=== PATIENT | female | born 1940 | race Caucasian/White ===

== ENCOUNTER 2017-07-30 22:55 | Inpatient (IN) | payer MEDICARE, MEDICAID ==
[~2017-07-30] VITALS: Ht 170.2 cm; Wt 41.6 kg
[2017-07-31] VITALS (7 sets, daily range): BP systolic 111–141; BP diastolic 46–84; PULSE 52–71; RESP 12–15; O2SAT 95–99
[2017-07-31] MEDS ORDERED: Alum-Mag Hydrox-Simeth 30 mL Suspension PO PRN (01:05)
[2017-07-31] MEDS ORDERED: BACL10TA PO (01:05)
[2017-07-31] MEDS ORDERED: LAMO100T2 PO (01:05)
[2017-07-31] MEDS ORDERED: LAMO200T2 PO (01:05)
[2017-07-31] MEDS ORDERED: LISI10TA PO (01:05)
[2017-07-31] MEDS ORDERED: Ondansetron 2 mg/mL 2 mL Inj IVPUSH PRN (01:05)
[2017-07-31] MEDS ORDERED: Senna-Docusate 8.6-50 mg Tablet PO PRN (01:05)
[2017-07-31] MEDS ORDERED: SERT20OR6 PO (01:05)
[2017-07-31] MEDS ORDERED: HYDR-4003 PO (01:05)
[2017-07-31] MEDS ORDERED: ROB500 PO (01:05)
[2017-07-31] MEDS ORDERED: LOVA40TA PO (01:05)
[2017-07-31] MEDS ORDERED: ROPI0.252 PO (01:05)
[2017-07-31] MEDS ORDERED: Polyethylene Glycol (PEG) 17 Gm Powder PO PRN (01:05)
[2017-07-31] MEDS ORDERED: PRIM50TA PO (01:05)
--- NOTE | 2017-07-31 02:01 | NUR ---
Admit note: Pt arrives to room 2013 per cart by EMS from [facility] at 0015. Pt is unarousable, but did cry out when transferred onto bed from cart. Monitor was applied shows SR 60-70s, Spo2=98% on room air; PH=504a/50s. Family arrives and at bedside, talks with Dr. Hidalgo. Pt made comfortable and continued to monitor.
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
[2017-07-31 06:09] LABS: BASOPHILS % (AUTO) 0.3 % (0-3); EOSINOPHILS % (AUTO) 2.9 % (0-5); MONOCYTES % (AUTO) 13.6 % (4-12); Mean Corpuscular Hemoglobin 33.5 pg (27.0-35.0); Mean Corpuscular Volume 104.9 fL (81-100); NEUTROPHILS % (AUTO) 59.6 % (40-74); Platelet Count 217 bil/L (150-400)
[2017-07-31] MEDS: Sodium Chloride LOK Flush 10 mL Syringe IVFLUSH SCH ×2 (08:23→16:56)
[2017-07-31] MEDS: Heparin 5,000 Unit/mL Inj SUBQ SCH ×2 (08:23→16:56)
[2017-07-31] MEDS ORDERED: Dextrose 5% 0.9% NaCl 250 ML in IV Bag 1 EACH IV ONE (08:25)
[2017-07-31] MEDS ORDERED: Glucagon 1 mg/mL Inj IM ONE (08:30)
[2017-07-31] MEDS ORDERED: Dextrose 5% 0.9% NaCl 1,000 ML IV ONE (09:35)
[2017-07-31] MEDS ORDERED: Glucagon 1 mg/mL Inj IV ONE (10:00)
[2017-07-31] MEDS ORDERED: Dextrose 10% 250 ML IV ONE (10:15)
--- NOTE | 2017-07-31 13:19 | PCM.PNMED ---
Subjective Date of Service Jul 31, 2017 Subjective Patient was seen and examined today. She was obtunded and was not able to answer questions. I spoke with her sister who is in the room this morning she states that the patient was at full functioning health 2 days ago. She states the patient has had seizures since she was a child, but does not know what medications she is on, whether she is managing them properly, or who her primary physician is. Sister Roula says that Kimberly has assigned her is the point of contact for her healthcare decisions, though they have not formalize this and any official way. There is also a son in [place] that he may be in. Nursing states that patient was a little more responsive but not fully with it. I revisited with the patient and she was alert and oriented 3, he stated that she wishes to be DNR/DNI. Exam Vital Signs Vital Sign - Last Date Time Temp Pulse Resp B/P Pulse Ox O2 Delivery O2 Flow Rate FiO2 07/31/17 07:37 36.5 52 12 135/62 97 Room Air Exam General: Obtunded, and arousable but could not keep eyes open or answer questions HEENT: Pupils equal round, mucous membrane moist. Neck: Supple, No lymphadenopathy or thyromegaly. Cardiovascular: Regular rhythm with no murmurs, rubs, or gallops appreciated Pulmonary: Clear to auscultation bilaterally with no crackles, wheezes, or rhonchi. Decreased air movement. Abdomen: Bowel tones present. Soft, nontender, nondistended. No hepatosplenomegaly or masses appreciated. Extremities: No clubbing, cyanosis, edema, or lymphadenopathy appreciated. Skin: Normal temperature, turgor, and texture; no rash, ulcers, or subcutaneous nodules appreciated. Neurological: No clonus or cogwheel rigidity. Psychiatric: Unable to assess IVs and Medications Medications Reviewed: Medications were reviewed in detail Lab and Diagnostics Result Diagram: 07/31/1750907/31/17509 X-Rays, CTs and MRIs From [facility]: X-ray lumbar spine 3 view. Impression: Negative for acute fracture. Chest x-ray one view Impression: 3.5 cm nodular mass at the right posterior lung base suspicious for neoplasm. This was demonstrated previously on 05/30/17 on chest x-ray. No acute infiltrates X-ray bilateral hip Impression: Negative pelvis and bilateral hips CT C-spine Impression: Negative CT cervical spine. No evidence of an acute process or fracture. CT head Impression: no CT evidence of acute intracranial process CT head Impression: There are minor old small vessel changes in the white matter. Otherwise negative CT head. No evidence of acute acute process. 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 Hospital day 2. Altered mental status concerning for nonconvulsive status epilepticus in a patient with history of localization-related epilepsy, present on admission, active -Patient is now status post loading dose of Keppra as well as Dilantin with marginal improvement. -Patient did complain of pain this morning, but we will hold off on morphine to better assess her mental status -Keppra discontinued on advice of ICU team to better assess her mental status -Urine drug screen ordered -Dr. Ja Rosas was consulted and believes that the patient likely did have a seizure and wasn't postictal state. He recommends resuming home Lamictal and Keppra 500 mg twice a day -EEG is ordered showed diffuse slowing but no current seizure activity -Neurological exam is nonfocal -MRI to be performed today Chronic issues: Restless leg syndrome -Patient is nothing by mouth currently due to altered mental status Essential tremor Cervical dystonia -Patient is nothing by mouth currently due to altered mental status Hyperlipidemia -Patient is nothing by mouth currently due to altered mental status Depression -Patient is nothing by mouth currently due to altered mental status CODE STATUS: Per my conversation with patient on 07/31/17 patient wishes to be DNR/DNI Patient will likely be here another couple of days while she rebounds from this recent seizure. VTE Mechanical Devices: Intermittant Pneumatic CD Time spent 30 minutes Attending Statement I have seen and evaluated patient at bedside in addition to directly supervising care provided by resident physician Dr. Blair on 07/31/2017. I agree with above documentation. Note in conversing with Dr Otto over the phone following review of EEG; we are of the opinion patient did have a stroke of evidenced by difuse slowing pattern , patient:s previous obtunded state may be multifactorial due to antiepilietpic medications, Dilantin specially, and possible post-ictal state. Given lack of response to Narcan it is unlikely opiates played a significant role. Keppra will be added to previously RX'd Lamictal as there is evidence of treatment failure. Lamictal level remains pending. Murali Blair DO Jul 31, 2017 13:19 Pierre Guajardo DO Jul 31, 2017 21:33
--- NOTE | 2017-07-31 13:46 | NUR ---
NUTRITION ASSESSMENT: ASSESS: Pt is a 76yo F admitted to CCU for encephalopathy. Neurology has been consulted and plan is for EEG and MRI today. She is currently NPOx1 day. PMHX: epilepsy, essential tremor, RLS, Depression, DJD, HTN, Depression LABS: Reviewed. Bun 6, Ca 8.2 MEDS: Reviewed. Zofran, morphine GI: 0 BM yet SKIN: no issues noted CURRENT WTS: 45.1kg, BMI 15.6kg/m2, IBW: 61.4kg DIET: NPOx1 EST. NEEDS: wt gain Kcals: 1350-1800kcal/day (30-40kcal/kg) Pro: 55-70g/day (1.2-1.5g/kg) NUTRITION DIAGNOSIS: 1.) Inadequate oral intake related to decreased ability to consume sufficient energy as evidenced by current NPO status NUTRITION INTERVENTION: 1.) Recommend advance diet when medically appropriate. Due to AMS pt may benefit from ST eval for most appropriate/safe diet order. 2.) Will monitor wt trends as pt is currently underwt with a BMI of 15.6. Once encephalopathy clears will attempt to speak with pt about her wt and ways to gain wt so that BMI in in healthy range MONITOR / EVAL: NPO, wt, st, gi, labs, POC, nutrition status. Will continue to monitor per high nutrition risk guidelines Addendum: 08/01/17 at [address] Spoke with pt and pt's sister today about pt's wt and her appetite. Pt stated that she gets full easily and so she likes to snack throughout the day. She stated that her wt tends to fluctuate but recently has been decreasing. She tends to make her own muffins and biscuits and she eats a lot of oatmeal. Discussed with pt and her sister about trying to optimize her kcal/pro intake by eating high kcal/pro foods and using extra butter/gravy and drinking whole milk to get more kcals. Discussed eating smaller more frequent meals. Provided high kcal/pro recipe book and high kcal/pro nutrition handout. Pt stated that she likes to cook and her caregiver helps her cook as well.
--- NOTE | 2017-07-31 14:32 | DRSVH ---
PROCEDURE: MRI SEIZURE BRAIN WITH AND WITHOUT CONTRAST ([id number]) INDICATIONS: AMS/Seizure? TECHNIQUE: Noncontrast axial T1 spin echo, axial T2 fast spin echo, sagittal and axial FLAIR, axial gradient ech o, axial diffusion and ADC, coronal thin-slice T2 FSE through the brain. Optional contrast, followed by axial and coronal 3D VIBE or T1 spin echo with fat saturation sequences through the brain. COMPARISON: None. FINDINGS: Image quality: Motion is present throughout the examination, with several sequences demonstrating sig nificant artifact, limiting evaluation. CSF spaces: Ventricles are normal in size and shape. Basal cisterns are patent. No extra-axial flu id collections. Brain: No gross intracranial bleeds or mass effects. No gross abnormal intracranial enhancement. G ray-white matter interface appears intact. Diffusion weighted images demonstrate no acute ischemic i nsults. Brainstem appear normal. Normal intravascular flow voids are present. The hippocampal eusebio ons appear normal and symmetric in morphology. Skull and face: Calvarial marrow signal is normal. Orbits appear normal. Sinuses: Sinuses and mastoids are clear. IMPRESSION: 1. Significant motion artifact limiting areas of detail evaluation. 2. No acute gross intracranial process. 3. Moderate atrophy and chronic microvascular ischemic changes. Dictated by: Bobbi Schroeder M.D. on 07/31/2017 at 14:17 Approved by: Bobbi Schroeder M.D. on 07/31/2017 at 14:31
[2017-07-31] MEDS ORDERED: Sertraline 20 mg/mL Liq PO SCH (16:00)
[2017-07-31] MEDS ORDERED: _HYDROcodone/APAP 5-325 mg Tablet PO PRN (16:00)
[2017-07-31] MEDS: HYDROcodone-APAP 5-325 mg Tablet PO PRN ×2 (16:33→21:11)
--- NOTE | 2017-07-31 17:37 | NUR ---
Social Work: Initial Assessment D: Per EMR review, patient is a 76 year old female admitted for encephalopathy. Patient is Medicare with DSHS supplement; no LTC or VA benefits. Mysql Database Developer is Ting Springer DO. NOK is Roula Best, sister, . Advanced directives not completed prior to admission. NO RA Score available at this time. DEBT COLLECTION SPECIALIST met with the patient's sister at bedside. Sw role explained, contact information and discharge planning checklist provided. See initial assessment. Pt lives in a ground level apartment in [facility]. Patient uses a 4WW and FWW at baseline but is I with her ADLs. Patient has MISSAEL caregiving 36 hours a month (3x week for 3 hours). Pt's CM is Ja Ryder who was present at bedside. Caregivers assist patient with meds, bathing, cleaning and meal prep. Patient has never had HH and half-way. Patient's sister anticipates discharge home but is receptive to discharge planning as needs become known. A: Pt who is at baseline but has MISSAEL Caregiving for 36 hours of caregiving/month. P: Evolving; DEBT COLLECTION SPECIALIST to continue to follow to assess for discharge needs. [facility] Addendum: 07/31/17 at 1747 by MARCIN RAHMAN Amended: Links added.
--- NOTE | 2017-07-31 18:37 | NUR ---
Neuro.. pt quite somnolent this am, and confused to place and year. Throughout the am became increasingly more alert and this afternoon is oriented x3 and back to neuro baseline per family and caregiver. Noted to be hypoglycemic this am, but asymptomatic. Dr Blair updated and D10 given. This afternoon is able to take po and blood sugars are normalizing. Was taken to MRI monitored with RN present and pt pearl procedure well. Family and caregiver updated. Pt has transitioned to PCC/Tele status.
[2017-07-31] MEDS: levETIRAcetam 500 mg Tablet PO SCH (20:01)
[2017-07-31] MEDS ORDERED: lamoTRIgine 100 mg Tablet PO SCH (21:00)
[2017-08-01] VITALS (7 sets, daily range): BP systolic 105–158; BP diastolic 48–72; PULSE 54–79; RESP 13–22; O2SAT 97–100
[2017-08-01] MEDS: Sodium Chloride LOK Flush 10 mL Syringe IVFLUSH SCH ×2 (00:28→09:01)
[2017-08-01] MEDS: Heparin 5,000 Unit/mL Inj SUBQ SCH ×2 (00:28→09:01)
[2017-08-01] MEDS: HYDROcodone-APAP 5-325 mg Tablet PO PRN (01:03)
[2017-08-01 03:47] LABS: Mean Corpuscular Hemoglobin 33.6 pg (27.0-35.0); Mean Corpuscular Volume 104.1 fL (81-100)
--- NOTE | 2017-08-01 05:32 | NUR ---
Tele / VS /Pain / No N&V/ Neuro Pt denies chest pain, Tele SB-SR with HR 50-60s and down to the mid 40s while sleeping. VS stable and afebrile. No c/o SOB, RA sats 98-100%. Pt c/o bilateral hip and leg pain 07/14. Medicated with PO [place] 5-325mg twice this shift and Pt fell back asleep after being medicated, both times. No N&V noted all night. Pt A&O X3 overnight.
[2017-08-01] MEDS ORDERED: lamoTRIgine 100 mg Tablet PO SCH (08:30)
[2017-08-01] MEDS: levETIRAcetam 500 mg Tablet PO SCH (08:59)
--- NOTE | 2017-08-01 12:14 | PCM.DIMED ---
Murali Blair DO 08/01/17 1158: Discharge Instructions Date of Service Aug 01, 2017 Dates of Hospitalization Jul 31, 2017 at 00:20 Discharge Diagnosis Discharge Diagnosis Nonconvulsive status epilepticus Medication Instructions Additional med instructions We are sending you home with Keppra 500 mg to be taken twice daily. Continue taking your lamotrigine 100 mg in the morning and 200 mg at night. Please resume taking your regularly prescribed home medications as directed. Test Results Test Results Per our neurologist, Dr. Rosas, your EEG showed that you likely had a seizure. The MRI of your brain did not show any signs of a stroke. Diet Discharge Diet: Heart Healthy Activity Discharge Activity: Limited until seen by PCP Call your provider Call your provider for: Fever or Chills, Shortness of breath, Bleeding, Chest pain, Vomitting, Excessive diarrhea, Weakness (unilateral) Patient Instructions Patient Instructions Please follow-up with your primary care provider within one week. Please remember to ask about your recent chest x-ray. Resume your home health care. Please take your new medication and your other home medications as prescribed. It will be important for your family and your home residential care facility manager to keep a close eye on you for the first couple of days until you get settled back at home. Follow-up Provider: Ting Springer DO Follow-up with PCP in: 1 week Sohail Coleman MD 08/03/17 0745: Discharge Instructions Attending's Statement The patient was seen and examined together with Dr. Blair on 08/01/2017 and I agree with the history, exam and plan as outlined in the note above. . Murali Blair DO Aug 01, 2017 11:58 Sohail Coleman MD Aug 03, 2017 07:45
[2017-08-01] MEDS ORDERED: KEP500TA PO (12:24)
--- NOTE | 2017-08-01 13:44 | NUR ---
Social Work: Discharge/Multidisciplinary Rounds D: Pt discussed in multidisciplinary rounds; the patient is medically stable for discharge. Capacity for self-care discussed; no concerns at this time. Doctor does not identify any discharge needs. RN agrees. TELESALES MANAGER met with the patient and sister at bedside to reassess for discharge needs. Patient found sitting in her bedside chair, eating her lunch. Patient and sister state that the patient has been ambulating and that she is back to her baseline. TELESALES MANAGER confirmed patient has 3 day of IMSSAEL caregiving a week (3 hours each day) who assist with meals, bathing, chores and cleaning. Patient and sister identify no discharge needs and state that the patient son will be staying with her for several days, and sister will also be checking in. TELESALES MANAGER requested Topographic Computator fax discharge clinicals to [facility] ISIAH Ryder. A: Pt who is at her baseline functioning. P: Pt to discharge home with resumed MISSAEL Caregiving and family support. No further discharge needs identified at this time. [facility]
--- NOTE | 2017-08-01 14:26 | NUR ---
Discharge Pt discharged at approximately 1415 to home with sister. Pt given educational material and prescription for Keppra, Status Ellipticus. IV DC'd with catheter intact. Pt and sister acknowledged information. Followup appt scheduled, sister stated she will facilitate a ride. Pt left with all personal belongings. Escorted by BRUSH WORKER in wheelchair to door.
--- NOTE | 2017-08-01 18:21 | PCM.DC.MED ---
Discharge Summary Date of Service Aug 01, 2017 Dates of Hospitalization Date of Hospital Admission Jul 31, 2017 at 00:20 Date of Discharge: Aug 01, 2017 Providers: Admitting Physician: Hannah Mendez DO Primary Care Physician: Ting Springer DO Attending Physician: Sohail Coleman MD Diagnosis at Time of Discharge Diagnosis at Time of Discharge Nonconvulsive status epilepticus Consultations Dr. Sloan, Neurology Procedures XRay, CTs & MRIs From [place]: X-ray lumbar spine 3 view. Impression: Negative for acute fracture. Chest x-ray one view Impression: 3.5 cm nodular mass at the right posterior lung base suspicious for neoplasm. This was demonstrated previously on 05/30/17 on chest x-ray. No acute infiltrates X-ray bilateral hip Impression: Negative pelvis and bilateral hips CT C-spine Impression: Negative CT cervical spine. No evidence of an acute process or fracture. CT head Impression: no CT evidence of acute intracranial process CT head Impression: There are minor old small vessel changes in the white matter. Otherwise negative CT head. No evidence of acute acute process. Other Diagnostics EEG performed 07/31/17 demonstrated diffuse slowing, without seizure activity. 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 The patient was noncommunicative and the entirety of the history was obtained through record review as well as given medication with the patient's family who were at bedside. Per documentation, patient had a syncopal episode prior to arrival which was not witnessed and the patient stated to have lost consciousness. Patient did complain of low back, right hip and left hip pain. Patient notes that she awoke on her bathroom floor with no recollection of what happened previous to the event. In the [place] emergency department the patient was noted to be uncomfortable and crying and she was given 0.5 mg of Dilaudid. After this the patient became sleepy and difficult to arouse at which point a trial of Narcan was given the patient did but subsequently became very agitated and nonconversant. An ABG was obtained which was unremarkable. Second trial of Narcan was given with no effect. Patient was never noted to be in respiratory distress. The patient had a syncopal episode with a possible fall a repeat CT of head was performed which was unremarkable. This case was discussed with Dr. Ja Sloan noted that the patient may be having nonconvulsive status and recommended a 1 g loading dose of Keppra. This was followed by a loading dose of Dilantin at the patient had no improvement in 30 minutes. She had an MRI which did not show any evidence of stroke. Later in the day, patient was alert and oriented times 3 An EEG was performed which was interpreted by Dr. sloan from neurology and displayed diffuse slowing indicative of a post-ictal state. He recommended that we give her 500 mg of Keppra twice daily and restart her home dose of lamotrigine. On day of discharge, patient was alert and oriented 3. Her vital signs were stable. She was eating, drinking, ambulating independently, and urinating. She was discharged home with home health and close by family to keep an eye on her for the first few days while she gets settled at home. She was instructed to follow up with her primary care physician Dr. Springer within 1 week. She was restarted on her home lamotrigine as well as her other home meds, and received a prescription for 500 mg Keppra twice daily. Hospital Course See below for detailed hospital course Altered mental status concerning for nonconvulsive status epilepticus in a patient with history of localization-related epilepsy, present on admission, resolved -Patient did complain of pain this morning, but we will hold off on morphine to better assess her mental status -Lamotrigine 100 mg every morning and 200 mg every PM and Keppra 500 mg twice a day -Dr. Ja Sloan was consulted and believes that the patient likely did have a seizure and was in postictal state on presentation -EEG is ordered showed diffuse slowing but no current seizure activity -Neurological exam is nonfocal -MRI did not show evidence of stroke. Chronic issues: Restless leg syndrome Essential tremor Cervical dystonia Hyperlipidemia Depression CODE STATUS: Per my conversation with patient on 07/31/17 patient wishes to be DNR/DNI Disposition: Home with home health and close care by family members for the first few days. Exam Vital Signs (Last) Date Time Temp Pulse Resp B/P Pulse Ox O2 Delivery O2 Flow Rate FiO2 08/01/17 13:16 36.7 66 20 132/70 98 Room Air Exam General: No acute distress HEENT: Normocephalic, atraumatic Neck: Supple with full range of motion. No jugular venous distension. Cardiovascular: Regular rate and rhythm with no murmurs, rubs, or gallops appreciated Pulmonary: Clear to auscultation bilaterally with no crackles, wheezes, or rhonchi. Normal respiratory effort with no use of accessory muscles. Abdomen: Bowel tones present. Soft, nontender, nondistended. Extremities: No clubbing, cyanosis, edema, or lymphadenopathy appreciated. Skin: Normal temperature, turgor, and texture Neurological: Cranial nerves grossly intact. Normal muscle strength, tone, and bulk. Reflexes, coordination, and sensory function within normal limits. Psychiatric: Normal mood and affect. Alert and oriented to person, place, and time. Test 07/31/17 05:10 07/31/17 16:30 08/01/17 03:10 Neutrophils (%) (Auto) 59.6% (40-74) Lymphocytes (%) (Auto) 23.4% (14-46) Monocytes (%) (Auto) 13.6% (4-12) Eosinophils (%) (Auto) 2.9% (0-5) Basophils (%) (Auto) 0.3% (0-3) Phenytoin (Dilantin) Level 7.2uG/mL (10.0-20.0) White Blood Count 5.6th/mm3 (3.8-10.1) Red Blood Count 3.18mil/mm3 (3.90-5.20) Hemoglobin 10.7g/dL (12.0-15.6) Hematocrit 33.1% (35.0-46.0) Mean Corpuscular Volume 104.1fL (81-100) Mean Corpuscular Hemoglobin 33.6pg (27.0-35.0) Mean Corpuscular Hemoglobin Concent 32.3% (32.0-37.0) Red Cell Distribution Width 14.3% (12.3-15.4) Platelet Count 208bil/L (150-400) Sodium Level 136mEq/L (134-144) Potassium Level 3.8mEq/L (3.5-5.2) Chloride Level 100mEq/L (97-108) Carbon Dioxide Level 28mmol/L (18-29) Blood Urea Nitrogen 7mg/dL (8-27) Creatinine 0.60mg/dL (0.57-1.00) Estimat Glomerular Filtration Rate 139mL/min (>59) Glucose Level 91mg/dL (60-99) Calcium Level 8.2mg/dL (8.5-10.1) Total Bilirubin 0.2mg/dL (0.0-1.2) Aspartate Amino Transf (AST/SGOT) 22U/L (0-50) Alanine Aminotransferase (ALT/SGPT) 11U/L (0-32) Alkaline Phosphatase 66U/L (25-165) Total Protein 5.2g/dL (6.4-8.4) Albumin 3.3g/dL (3.4-5.0) Discharge Medications Discharge Medications Baclofen (Baclofen) 10 Mg Tablet 10 MG PO QAM (Reported) Lamotrigine (Lamotrigine) 100 Mg Tablet 100 MG PO QAM (Reported) Lamotrigine (Lamotrigine) 200 Mg Tablet 200 MG PO HS (Reported) Levetiracetam (Keppra) 500 Mg Tablet 500 MG PO BID Prescribed by: NICKY HENRY DO Lisinopril (Lisinopril) 10 Mg Tablet 10 MG PO DAILY (Reported) Lovastatin (Lovastatin) 40 Mg Tablet 40 MG PO HS (Reported) Methocarbamol (Methocarbamol) 500 Mg Tablet 500 MG PO TID (Reported) Primidone (Primidone) 50 Mg Tablet 50 MG PO HS (Reported) Ropinirole (Ropinirole) 0.25 Mg Tablet 0.25 MG PO HS (Reported) Sertraline HCl (Sertraline) 20 Mg/1 Ml Oral.conc 25 MG PO DAILY (Reported) As needed Hydrocodone-Acetaminophen 5-325 mg (Hydrocodone-Acetaminophen 5-325 mg) 1 Each Tablet 1 TABLET PO Q4H PRN PRN For Pain (Reported) Additional med instructions We are sending you home with Keppra 500 mg to be taken twice daily. Continue taking your lamotrigine 100 mg in the morning and 200 mg at night. Please resume taking your regularly prescribed home medications as directed. Followup Plan Disposition: Home with home health Follow-up plan Follow-up with PCP in 1 week Discharge Diet: Heart Healthy Discharge Activity: Limited until seen by PCP Patient Instructions Please follow-up with your primary care provider within one week. Please remember to ask about your recent chest x-ray. Resume your home health care. Please take your new medication and your other home medications as prescribed. It will be important for your family and your home healthcare market consultant to keep a close eye on you for the first couple of days until you get settled back at home. Follow-up Provider: Ting Springer DO Follow-up with PCP in: 1 week Time spent Greater than 30 minutes was spent in preparation of discharge with greater than 50% of that time dedicated to patient counseling and coordination of care. . Attending Statement The patient was seen and examined together with Dr. Henry on 08/01/2017 and I agree with the history, exam and plan as outlined in the note above. . copies to: Ting Springer Aaron C DO Aug 01, 2017 18:20 Sohail Coleman MD Aug 03, 2017 07:46
== END 2017-08-01 14:13 | disposition home or self-care (01) | DRG 101 ==
LOC: CCU 07-31 00:20 → PCC 07-31 15:10
PROVIDERS: ADMIT Internal Medicine; ATTEND Internal Medicine
DX: G40.101 Localization-related (focal) (partial) symptomatic epilepsy and epileptic syndromes with simple partial seizures, not intractable, with status epilepticus (principal); Z66 Do not resuscitate